=== PATIENT | male | born 1965 | race Hispanic/Latino ===

== ENCOUNTER 2019-02-28 09:10 | Emergency (ER) | payer BC ==
[2019-02-28 09:15] VITALS: BMI 39.0
[2019-02-28 09:22] VITALS: RESP 18; TEMP 98; O2SAT 99
--- NOTE | 2019-02-28 09:44 | ED PDOC ---
Arrival/HPI - General Chief Complaint: Lower Extremity Problem/Injury Historian: Patient - History of Present Illness Narrative History of Present Illness (Text): 02/28/19 09:41 53 y/o male, no significant pmh, nkda, c/o rt. knee pain and swelling s/p flavio mping and twisting injury x 2 hours. pt. stated that he didn't see the steps, stumped on the rt. knee, noted swelling, no difficulty bending and extending, no numbness or tingling, no night sweat, no other medical or psychological complaints. Past Medical History - Provider Review Nursing Documentation Reviewed: Yes - Psychiatric Hx Substance Use: No - Surgical History Hx Musculoskeletal Surgery: Yes - Anesthesia Hx Anesthesia: Yes Hx Anesthesia Reactions: No Hx Malignant Hyperthermia: No Family/Social History - Physician Review Nursing Documentation Reviewed: Yes Family/Social History: Unknown Family HX Smoking Status: Never Smoked Hx Alcohol Use: No Hx Substance Use: No Allergies/Home Meds Allergies/Adverse Reactions: Allergies No Known Allergies Allergy (Verified 02/28/19 09:14) Review of Systems - Review of Systems Constitutional: absent: Fatigue, Fevers Eyes: absent: Vision Changes ENT: absent: Hearing Changes Respiratory: absent: SOB, Cough Cardiovascular: absent: Chest Pain Gastrointestinal: absent: Abdominal Pain, Diarrhea, Nausea, Vomiting Skin: absent: Rash, Pruritis, Skin Lesions Neurological: absent: Headache, Dizziness Psychiatric: absent: Anxiety, Depression, Suicidal Ideation Physical Exam Vital Signs Reviewed: Yes Vital Signs Temp Pulse Resp BP Pulse Ox 02/28/19 09:21 98 F 95 H 18 149/93 H 99 Temperature: Afebrile Blood Pressure: Hypertensive Pulse: Regular Respiratory Rate: Normal Appearance: Positive for: Well-Appearing, Non-Toxic, Comfortable Pain Distress: Mild Mental Status: Positive for: Alert and Oriented X 3 - Systems Exam Head: Present: Atraumatic, Normocephalic Pupils: Present: PERRL Extroacular Muscles: Present: EOMI Conjunctiva: Present: Normal Mouth: Present: Moist Mucous Membranes Neck: Present: Normal Range of Motion Respiratory/Chest: Present: Clear to Auscultation, Good Air Exchange. No: Respiratory Distress, Accessory Muscle Use Cardiovascular: Present: Regular Rate and Rhythm, Normal S1, S2. No: Murmurs Abdomen: No: Tenderness, Distention, Peritoneal Signs Back: Present: Normal Inspection Upper Extremity: Present: Normal Inspection. No: Cyanosis, Edema Lower Extremity: Present: Normal Inspection, Other (Rt. knee: +ttp and swelling noted on the rt. anerior knee, no deformity, no joint laxity, FROM without limitation including flexion/extension/rotations of the knee, sensation intact, motor 5/5, +DPPT pulses, capillary refill< 2 seconds, neurovascular intact, negative lilliam and jenkins signs, no skin erythematous/streaking/ulcers, no hip tenderness or swelling. ). No: Edema Neurological: Present: GCS=15, CN II-XII Intact, Speech Normal Skin: Present: Warm, Dry, Normal Color. No: Rashes Psychiatric: Present: Alert, Oriented x 3, Normal Insight, Normal Concentration Medical Decision Making ED Course and Treatment: 02/28/19 09:45 Suprapatellar tendon injury vs. fracture vs. dislocation vs. avulsion fracture -Rt. knee xray -Motrin -Observe and reassess 02/28/19 11:41 -Rt. knee xray: Soft tissue swelling anterior to the patella. No evidence of fracture -KHOI wrap applied by me with neurovascular intact, knee immobilizer. I offered the admission to the patient due to the rt. knee injury and he is 127kg/conc erning about his care and mobility at home but he refused. -I spoke to orthopedic oncall DR. Perdomo, discussed about the case/xray interpretation, he recommend to discharge home with crutches/khoi/knee immobilizer, he will see the patient tomorrow. Pt. agreed and preferred orthopedic plan. -Discharge home with motrin, khoi wrap, crutches, knee immobilizer, ice pack, non weight bearing, follow up with your own pmd and orthopedic within 2 days, return to the ER for any new or worsening signs or symptoms. - RAD Interpretation Radiology Orders: 02/28/19 09:40 KNEE W PATELLA RIGHT 3 VIEW [RAD] Stat Date of service: 02/28/2019 PROCEDURE: Right Knee Radiographs. HISTORY: rt. knee anterior swelling, stumping/twisting inju COMPARISON: None. TECHNIQUE: Three views obtained. FINDINGS: BONES: Normal. No fracture. JOINTS: Normal. No osteoarthritis. JOINT EFFUSION: None. OTHER FINDINGS: There is soft tissue swelling anterior to the patella. IMPRESSION: Soft tissue swelling anterior to the patella. No evidence of fracture Pega Developer: Radiologist - Medication Orders Current Medication Orders: Ibuprofen (Motrin Tab) 800 mg PO STAT STA Stop: 02/28/19 09:41 - PA / CHEMIST HELPER / Resident Statement MD/DO has reviewed & agrees with the documentation as recorded. Disposition/Present on Arrival - Present on Arrival Any Indicators Present on Arrival: No History of DVT/PE: No History of Uncontrolled Diabetes: No Urinary Catheter: No History of Decub. Ulcer: No History Surgical Site Infection Following: None - Disposition Have Diagnosis and Disposition been Completed?: Yes Diagnosis: Knee injury, Knee pain Disposition: HOME/ ROUTINE Disposition Time: 11:43 Patient Plan: Discharge Patient Problems: Current Active Problems Problem Status Onset Knee injury Acute Knee pain Acute Condition: GOOD Additional Instructions: -Discharge home with motrin, khoi wrap, crutches, knee immobilizer, ice pack, non weight bearing, follow up with your own pmd and orthopedic within 2 days, return to the ER for any new or worsening signs or symptoms. Prescriptions: Ibuprofen [Motrin] 600 mg PO QID PRN #30 tab PRN Reason: Other Referrals: Tito Perdomo MD [Staff Provider] - Follow up with primary Forms: Education Everytime ([place]), WORK NOTE
--- NOTE | 2019-02-28 11:14 | RAD ---
Date of service: 02/28/2019 PROCEDURE: Right Knee Radiographs. HISTORY: rt. knee anterior swelling, stumping/twisting inju COMPARISON: None. TECHNIQUE: Three views obtained. FINDINGS: BONES: Normal. No fracture. JOINTS: Normal. No osteoarthritis. JOINT EFFUSION: None. OTHER FINDINGS: There is soft tissue swelling anterior to the patella. IMPRESSION: Soft tissue swelling anterior to the patella. No evidence of fracture
[2019-02-28 11:35] VITALS: BP 141/71; PULSE 86
== END 2019-02-28 11:50 | disposition home or self-care (01) ==
LOC: ED 09:10
DX: S89.91XA Unspecified injury of right lower leg, initial encounter (principal); X50.1XXA Overexertion from prolonged static or awkward postures, initial encounter; M25.561 Pain in right knee

== ENCOUNTER 2019-03-08 09:06 | Outpatient (CLI) | payer BC | END 2019-03-08 09:07 | disposition home or self-care (01) | LOC: LAB 09:06 ==